=== PATIENT | female | born 2000 | race Caucasian/White ===

== ENCOUNTER 2020-01-03 17:22 | Emergency (ER) | payer OTHER ==
[~2020-01-03] VITALS: Ht 160 cm; Wt 77.1 kg
[2020-01-03 17:29] VITALS: Ht 160 cm; Wt 77.1 kg
[2020-01-03 19:10] VITALS: BP 148/96
== END 2020-01-03 19:10 | disposition home or self-care (01) ==
LOC: ED 17:22
DX: S82.62XA Displaced fracture of lateral malleolus of left fibula, initial encounter for closed fracture (principal); X50.1XXA Overexertion from prolonged static or awkward postures, initial encounter; Y93.89 Activity, other specified; Y92.89 Other specified places as the place of occurrence of the external cause; Y99.8 Other external cause status
CPT/HCPCS: Q0092